=== PATIENT | male | born 1995 | race Caucasian/White ===

== ENCOUNTER 2019-10-11 21:05 | Emergency (ER) | payer BC, OTHER ==
--- NOTE | 2019-10-11 21:17 | EDM.PDOC ---
ED HPI GENERAL MEDICAL PROBLEM - General Chief Complaint: Trauma Stated Complaint: [facility] Time Seen by Provider: 10/11/19 21:11 Source of Information: Reports: Patient, EMS History Limitations: Reports: No Limitations - History of Present Illness INITIAL COMMENTS - FREE TEXT/NARRATIVE: 4-year-old male presents to the ED per [place] [facility]. [place] 7 feet on a piece of equipment and fell face first. He landed hard on the ground and scratched up his glasses. Contusions to the right mandeep-face over the zygomatic process the maxillary sinus area and the right temporal scalp. He appreciated pain in his lower cervical spine almost immediately and elected to have the ambulance come pick him up. His apparently was father was on scene as well. He denies any numbness and tingling in any of his extremities. He denies any injuries to his arms or hands. Apparently he was walking on scene. He arrives with a c-collar in place. He denies spitting up any blood and he has no malocclusion. Denies any loss of consciousness. There is some contemplation he believes his last tetanus toxoid was administered at age 15. He wishes to hold off on immunization at this time Onset: Today Onset Date: 10/11/19 Onset Time: 19:50 Duration: Minutes: Location: Reports: Head, Face, Neck Quality: Reports: Ache, Other Severity: Moderate Improves with: Reports: Rest Worsens with: Reports: Other, Movement Context: Reports: Trauma (His facial abrasions of course makes the pain worse. Fall from height of about 7 feet.). Denies: Activity, Exercise, Lifting, Sick Contact Associated Symptoms: Reports: Rash (Abrasions to the right amndeep-face inferior and lateral to the right eye). Denies: Confusion, Chest Pain, Cough, cough w sputum, Diaphoresis, Fever/Chills, Loss of Appetite, Malaise, Nausea/Vomiting, Shortness of Breath, Weakness Treatments [employer]: Reports: Other (see below) (1.) Right Face/Facial Pain Score (Numeric/FACES): 1 - Related Data Home Meds: Home Meds . [No Known Home Meds] 10/11/19 [History] Past Medical History Neurological History: Reports: Other (See Below) (Been labeled with Asperger's syndrome and a form of autism.) Psychiatric History: Reports: Anxiety (Has not been on medicine for anxiety for a lengthy period of time.) Social & Family History - Living Situation & Occupation Living situation: Reports: with Family Review of Systems - Review of Systems Review Of Systems: See Below Constitutional: Reports: No Symptoms Eyes: Reports: Glasses (She scratched up the lenses quite badly on.) Ears: Reports: No Symptoms Nose: Reports: Other (Abrasion to his nose.) Mouth/Throat: Reports: Other. Denies: Loose Teeth Respiratory: Reports: No Symptoms (No spitting up blood or injury to the tongue or dentition.) Cardiovascular: Reports: No Symptoms GI/Abdominal: Reports: No Symptoms Genitourinary: Reports: No Symptoms Musculoskeletal: Reports: No Symptoms Skin: Reports: No Symptoms Neurological: Reports: No Symptoms Psychiatric: Reports: No Symptoms ED EXAM, GENERAL - Physical Exam Exam: See Below Exam Limited By: No Limitations General Appearance: Alert, Anxious, Mild Distress, Other (Complains of foreign body sensation in his right eye which he was able to remove a left eyelash. Vital signs are all within normal limits.) Eye Exam: Right Eye: Conjunctival Injection (Dural conjunctival injection without any corneal laceration or conjunctival laceration.), Bilateral Eye: PERRL Ears: Other (Right tympanic membrane was not visualized due to ceruminosis of the ear. Left is normal) Nose: Other (Abrasion over the bridge of the nose) Throat/Mouth: Normal Inspection, Normal Lips, Normal Teeth, Normal Oropharynx ( with no significant swelling or deformity. There was no bleeding from the intranasal cavity.), Other (Abnormalities to the teethNo abnormalities to the teeth a or tongue. Oh) Head: Facial Swelling (And over the right), Facial Tenderness ( zygomatic process and maxillary sinus with multiple abrasions but no lacerations that will require repair.), Sinus Tenderness ( Mandeep-face as described above.), Other (Cyst of the right forehead and left temporal scalp. These appear to be superficial) Neck: Normal Inspection ( Right maxillary sinus.), Tender Midline, Other Respiratory/Chest: No Respiratory Distress (Arrives in a C's collar and is complaining of pain in his lower cervical spine. On palpation he appears to have noted step-off deformities or malalignment there is no paraspinal muscle spasm. The collar was replaced until his neck is cleared by CT.), Lungs Clear, Normal Breath Sounds, No Accessory Muscle Use, Chest Non-Tender Cardiovascular: Normal Peripheral Pulses, Regular Rate, Rhythm, No Edema, No Gallop, No Murmur, No Rub Peripheral Pulses: 3+: Carotid (L), Carotid (R), Posterior Tibial (L), Posterior Tibial (R), Dorsalis Pedis (L), Dorsalis Pedis (R) GI/Abdominal: Normal Bowel Sounds, Soft, Non-Tender, No Organomegaly, No Abnormal Bruit, No Mass, Pelvis Stable, Other (No surgical scars.). No: Guarding, Rigid, Rebound (Male) Exam: No Hernia Back Exam: Normal Inspection, Full Range of Motion. No: CVA Tenderness (L), CVA Tenderness (R) Extremities: Normal Inspection, Normal Range of Motion, Non-Tender, No Pedal Edema, Normal Capillary Refill, Other (He has a ganglion cyst on the thenar eminence of his right wrist no injuries to his hands wrist elbows or shoulders similarly lower extremities are intact without injury to the knees or hips) Neurological: Alert, Oriented, CN II-XII Intact, Normal Cognition, Normal Gait Psychiatric: Normal Affect, Normal Mood Skin Exam: Warm, Dry, Intact, Normal Color, No Rash Course - Vital Signs Last Recorded V/S: Last Vital Signs Temp 36.7 C 10/11/19 21:20 Pulse 97 10/11/19 21:20 Resp 20 10/11/19 21:20 BP 125/86 10/11/19 21:20 Pulse Ox 100 10/11/19 21:20 - Orders/Labs/Meds Orders: Active Orders 24 hr Category Date Time Status Cervical Spine wo Cont [CT] Stat Exams 10/11/19 21:12 Taken Head wo Cont [CT] Stat Exams 10/11/19 21:12 Taken Maxillofacial w/o CM [Max Facial Sinus wo Cont] [CT] Exams 10/11/19 21:11 Taken Stat - Radiology Interpretation Free Text/Narrative:: 24-year-old male presents to the ED per ambulance from [facility]. Apparently was up on a piece of equipment in a park in the [facility]. He fell approximately 7 feet and landed directly on his face with resultant contusions abrasions to the right maxillary sinus area zygomatic process right temporal and lateral scalp and forehead. Mild conjunctival labile injection right lateral eye. No malocclusion. No injuries to the dentition or tongue. He arrives in a c-collar as he is complaining of pain in his lower cervical spine since the time of injury. Plan CT head. CT cervical spine. CT maxillofacial bones. There is no lacerations that require surgical repair. Going to check on his tetanus toxoid. - Re-Assessments/Exams Free Text/Narrative Re-Assessment/Exam: 10/11/19 21:46 the scan of the brain reveals no intracranial bleeding or mass- effect. No skull fractures were identified. CT the maxillofacial bones reveals no fractures. No blood in the maxillary sinus and no injury to the orbit itself. Zygomatic process is intact. CT cervical spine reveals normal alignment. No fractures are identified in the cervical spine or malalignment.. C-Collar will be removed. Advised he is to expect increased stiffness and soreness in his neck over the next couple of days. Then feel some stiffness and soreness in the strap muscles on the anterior neck due to whiplash type injury. Advised Motrin 600 mg every 6 hours as needed for pain relief. Ice pack to the neck bones 1/2-hour out of every 4 hours for the next 2 days. With personal care physician if any further problems occur. Application of bacitracin and Polysporin once daily to facial abrasions until they healed to prevent secondary infection. 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 Departure - Departure Time of Disposition: 21:52 Disposition: Home, Self-Care 01 Condition: Fair Clinical Impression: Contusion of face Acute cervical myofascial strain Qualifiers: Encounter type: initial encounter Qualified Code(s): S16.1XXA - Strain of muscle, fascia and tendon at neck level, initial encounter Facial abrasion Qualifiers: Encounter type: initial encounter Qualified Code(s): S00.81XA - Abrasion of other part of head, initial encounter - Discharge Information *PRESCRIPTION DRUG MONITORING PROGRAM REVIEWED*: Not Applicable *COPY OF PRESCRIPTION DRUG MONITORING REPORT IN PATIENT [facility]: Not Applicable Instructions: Facial or Scalp Contusion, [id number], Muscle Strain, Easy-to- Read, Cervical Sprain, [id number] Referrals: PCP,Unknown [Ordering Only Provider] - Forms: ED Department Discharge Additional Instructions: Valuation in the emergency room today in regards to injuries sustained from a fall in the region tonight. History suggest you fell approximately 7 feet landing directly on your face suffering multiple abrasions and contusions to the right side of your face over the maxillary sinuses zygomatic process and right temporal scalp. Reported loss of consciousness. You recognized however pain in your lower neck almost immediately after the injury. No other injuries were identified on examination. CT of the head and neck reveals no intracranial bleeding or mass-effect or skull fractures. Neck bones are intact without any broken bones and have normal alignment. CT of the maxillofacial sinus bones reveals no fractures in the maxillary sinus floor the orbit or over the zygomatic process. Expect to have increased stiffness and soreness in your neck over the next couple of days from whiplash type injury. You may even experience pain in the anterior neck muscles due to the force of injury. Suggest ice pack to the sore areas for 1/2-hour out of every 4 hours for the first 2 days and after that may apply heat to these areas. Motrin 600 mg every 6 hours as needed for pain relief. Patient abrasions to be cleansed daily with soap and water. Showering is okay. Then apply topical antibiotic such as bacitracin or Polysporin to the wounds once daily until they are healed to prevent secondary wound infection. With personal care physician if any signs of infection occur. Sepsis Event Note - Focused Exam Vital Signs: Vital Signs Temp Pulse Resp BP Pulse Ox 10/11/19 21:20 36.7 C 97 20 125/86 100 Date Exam was Performed: 10/11/19 Time Exam was Performed: 22:10 - My Orders Last 24 Hours: My Active Orders 10/11/19 21:11 Maxillofacial w/o CM [Max Facial Sinus wo Cont] [CT] Stat 10/11/19 21:12 Cervical Spine wo Cont [CT] Stat Head wo Cont [CT] Stat - Assessment/Plan Last 24 Hours: My Active Orders 10/11/19 21:11 Maxillofacial w/o CM [Max Facial Sinus wo Cont] [CT] Stat 10/11/19 21:12 Cervical Spine wo Cont [CT] Stat Head wo Cont [CT] Stat
--- NOTE | 2019-10-12 09:38 | CT ---
CT cervical spine Technique: Multiple axial sections were obtained from above C1 inferiorly to the bottom of C7. Reconstructed coronal and sagittal images were obtained. Comparison: No prior cervical spine imaging is available. Findings: Cervicothoracic junction was not completely included on this study. Vertebral body heights and disc spaces are maintained. Mild left-sided neural foraminal stenosis is noted at C4-5. Other neural foramina are widely patent. No bony central canal stenosis is seen. No acute fracture or abnormal subluxation is seen. Impression: 1. Mild left-sided neural foraminal stenosis at C4-5 which appears to be developmental. 2. Incompletely visualize cervicothoracic junction. 3. No additional abnormality is appreciated on CT study of the cervical spine. Diagnostic code #2 This report was dictated in MDT I agree with preliminary report from [facility], finalized on 10/11/19, 10:52 PM Central Daylight Time
--- NOTE | 2019-10-12 09:38 | CT ---
Head CT Technique: Multiple axial sections through the brain were obtained. Intravenous contrast was not utilized. Comparison: No prior intracranial imaging is available. Findings: Ventricles along with basal cisterns and sulci over the convexities are within normal limits for the patient's age. No abnormal parenchymal densities are seen. No evidence of intracranial hemorrhage. No midline shift or mass-effect is seen. Visualized paranasal sinuses and visualized mastoid sinuses show nothing acute. No acute calvarial finding is seen. Impression: 1. Nothing acute is appreciated on noncontrast head CT exam. Diagnostic code #1 This report was dictated in MDT I agree with preliminary report from [facility], finalized on 10/11/19, 11:05 PM [employer] Daylight Time
--- NOTE | 2019-10-12 09:39 | CT ---
CT facial bones Technique: Multiple axial sections through the facial bones were obtained. Reconstructed coronal and sagittal images were reviewed. Paranasal sinuses are clear. Right and left globes are symmetric. No retrobulbar abnormality is seen. Mild soft tissue swelling is noted within the right cheek. 2 posterior molars within the left mandible are in abnormal position and have not erupted. Slightly thickened mandibular cortex is seen which I believe is normal variant and unlikely is due to osteomyelitis. If osteomyelitis is present, this should be evident clinically. No facial bone fracture is noted. Impression: 1. Slightly thickened mandibular cortex as described above. 2. Abnormal position of 2 unerupted posterior molars within the left mandible. 3. No acute facial bone fracture is noted. 4. Mild soft tissue swelling. Diagnostic code #2 This report was dictated in MDT I agree with preliminary report from [facility], finalized on 10/11/19, 11:04 PM [employer] Daylight Time
== END 2019-10-11 22:04 | disposition home or self-care (01) ==
LOC: JD.ED 21:05
DX: S16.1XXA Strain of muscle, fascia and tendon at neck level, initial encounter (principal); S00.83XA Contusion of other part of head, initial encounter; S00.81XA Abrasion of other part of head, initial encounter; W20.8XXA Other cause of strike by thrown, projected or falling object, initial encounter; Y92.830 Public park as the place of occurrence of the external cause
CPT/HCPCS: 70450; 70450-26; 70486; 70486-26; 72125; 72125-26; 99282; 99284-25